=== PATIENT | female | born 1995 | race Caucasian/White ===

== ENCOUNTER 2019-06-05 16:24 | Outpatient (CLI) | payer OTHER, BC, SELFPAY ==
[2019-06-05 17:44] LABS: Alanine Aminotransferase 12 U/L (4-35); Aspartate Amino Transferase 20 U/L (14-36)
== END 2019-06-05 16:25 | disposition home or self-care (01) ==
PROVIDERS: Visit Provider Podiatrist Foot & Ankle Surgery
DX: B35.1 Tinea unguium (principal)
CPT/HCPCS: 36415; 84450; 84460

== ENCOUNTER 2021-11-16 15:45 | Emergency (ER) | payer OTHER, SELFPAY ==
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
[2021-11-16 15:50] VITALS: BP 131/72; PULSE 90; RESP 14; TEMP 36.7; O2SAT 100
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
== END 2021-11-16 16:33 | disposition home or self-care (01) ==
PROVIDERS: Emergency Provider Nurse Practitioner Family
DX: S93.401A Sprain of unspecified ligament of right ankle, initial encounter (principal); W17.81XA Fall down embankment (hill), initial encounter; F31.9 Bipolar disorder, unspecified
CPT/HCPCS: 73610; 81025; 99213; G0463

== ENCOUNTER 2024-01-17 10:27 | Emergency (ER) | payer OTHER, SELFPAY ==
[2024-01-17 10:34] VITALS: BP 113/64; PULSE 81; RESP 16; TEMP 36.5; O2SAT 100
--- NOTE | 2024-01-17 10:39 | ED.ALLEREA ---
HPI - Allergic Reaction General Chief complaint: Allergic Reaction Stated complaint: Allergic Reaction Time Seen by Provider: 01/17/24 10:48 Source: patient, RN notes reviewed and old records reviewed Mode of arrival: ambulatory Limitations: no limitations History of Present Illness HPI narrative: 28 year old female who [facility] with complaints of starting new medication of Seroquel last night and today she has feeling light she is having some allergic reaction to the mediation.She states that her face is itchy and he feels like she has a little bit of a rash to her face and skin is somewhat flushed in her cheeks.. Patient reports no shortness of breath or any difficulty swallowing.Patient has not taken any OTC mediation for her symptoms. MD complaint: allergic reaction Onset (ago): hour(s) (this morning) Symptoms: itching and other (face feels like has a rash with cheeks flushed) Treatment prior to arrival: none Related Data Home Medications Medication Instructions Recorded Confirmed aripiprazole 2 mg tablet 2 mg PO DAILY 11/16/21 11/16/21 lamotrigine 25 mg tablet 25 mg PO BID 11/16/21 11/16/21 atomoxetine 25 mg capsule mg PO 01/17/24 quetiapine 100 mg tablet mg 01/17/24 01/17/24 Allergies Allergy/AdvReac Type Severity Reaction Status Date / Time lumateperone [From Caplyta] Allergy Difficulty Verified 01/17/24 10:48 Breathing Review of Systems Review of Systems: CONSTITUTIONAL: Denies fever, chills, or sweats. EYES: Denies visual changes, redness, or discharge. ENT: Denies rhinorrhea, congestion, sore throat, or otalgia. CARDIOVASCULAR: Denies chest pain, palpitations, or edema. RESPIRATORY: Denies cough or dyspnea. GASTROINTESTINAL: Denies abdominal pain, nausea, vomiting, or diarrhea. GENITOURINARY: Denies dysuria or hematuria. SKIN: Reports her face feels like she has a rash is itchy with cheeks red MUSCULOSKELETAL: Denies back pain, joint pain, or myalgia. NEUROLOGIC: Denies headache, numbness, or weakness. PSYCHIATRIC: Reports history of anxiety or depression. All systems reviewed & are unremarkable except as noted in HPI and below PMFSH Past Medical History Medical History (Updated 01/18/24 @ 07:55 by Thi Burkett NP) ADHD, adult residual type Anxiety and depression Bipolar disorder Surgical History Surgical History (Updated 01/18/24 @ 07:47 by Thi Burkett NP) History of carpal tunnel surgery of left wrist History of lumpectomy of right breast Social History Social History (Updated 01/18/24 @ 07:44 by Thi Burkett NP) Smoking packs per day: 0.5 Smoking cigarettes per day: 10.0 Smoking status: Current every day smoker Tobacco type: cigarettes Alcohol intake: unknown Substance use: unknown Living arrangements: with family Gender identity (if verbalized by the patient): Female Comments At time of signature, agree with nursing past medical, surgical, social and family history. There is no relevant family history pertinent to the presenting complaint Exam Narrative: GENERAL: Well-appearing, well-nourished, and in no acute distress. HEAD: Normocephalic, atraumatic. EYES: PERRLA and EOMI. ENT: Nares clear, no rhinorrhea or epistaxis. Mucous membranes moist.TM's normal with good light reflex, throat pink with no swelling NECK: Supple. no lymphadenopathy CHEST: Clear to auscultation. No respiratory distress.SAO2 100% on room air HEART: Regular rate and rhythm. No murmur heard. Normal peripheral pulses. ABDOMEN: Soft, nontender, nondistended, normal active bowel sounds. EXTREMITIES: Normal range of motion. No edema. SKIN: Warm, dry, reports that face feels like she has a rash is itchy with some redness to cheeks, no definite hives or any fine rash noted NEURO: No focal deficits. Alert and oriented x3. Course Course Emergency Course: Patient is aware of diagnosis, understands and agrees to treatment plan.? Anticipatory guidance given
== END 2024-01-17 11:06 | disposition home or self-care (01) ==
PROVIDERS: Emergency Provider Registered Nurse
DX: L29.9 Pruritus, unspecified (principal); L53.9 Erythematous condition, unspecified; T43.595S Adverse effect of other antipsychotics and neuroleptics, sequela; F31.9 Bipolar disorder, unspecified
CPT/HCPCS: 99213; G0463